=== PATIENT | female | born 1970 | race Caucasian/White ===

== ENCOUNTER 2021-02-12 08:54 | Outpatient (CLI) | payer OTHER | END 2021-02-12 09:07 | disposition home or self-care (01) | LOC: MAMO-SONO 08:54 | PROVIDERS: ATTEND Specialist | DX: N60.12 Diffuse cystic mastopathy of left breast (principal); N60.11 Diffuse cystic mastopathy of right breast ==

== ENCOUNTER 2022-06-05 12:25 | Outpatient (CLI) | payer OTHER | END 2022-06-05 12:41 | disposition home or self-care (01) | LOC: MAMO-SONO 12:25 | PROVIDERS: ATTEND Specialist | DX: N60.11 Diffuse cystic mastopathy of right breast (principal); N60.12 Diffuse cystic mastopathy of left breast ==

== ENCOUNTER 2023-07-09 08:48 | Outpatient (CLI) | payer OTHER | END 2023-07-09 08:59 | disposition home or self-care (01) | LOC: MAMO-SONO 08:48 | PROVIDERS: ATTEND Specialist | DX: N60.11 Diffuse cystic mastopathy of right breast (principal); N60.12 Diffuse cystic mastopathy of left breast ==

== ENCOUNTER 2024-07-26 11:08 | Outpatient (CLI) | payer OTHER | END 2024-07-26 11:21 | disposition home or self-care (01) | LOC: MAMO-SONO 11:08 | PROVIDERS: ATTEND Obstetrics & Gynecology | DX: N60.11 Diffuse cystic mastopathy of right breast (principal); N60.12 Diffuse cystic mastopathy of left breast ==

== ENCOUNTER 2024-09-21 09:48 | Outpatient (CLI) | payer OTHER | END 2024-09-21 09:49 | disposition home or self-care (01) | LOC: NUCLEAR 09:48 | PROVIDERS: ATTEND Obstetrics & Gynecology Gynecology | DX: M81.0 Age-related osteoporosis without current pathological fracture (principal) ==